=== PATIENT | female | born 1990 | race Caucasian/White ===

== ENCOUNTER 2018-01-08 19:37 | Emergency (ER) | payer BC ==
[2018-01-08 20:02] VITALS: BP 127/76
--- NOTE | 2018-01-08 20:18 | ED ---
Skin Complaint - HPI Summary HPI Summary: 27 y/o female presents to the urgent care c/o a rash w/ some blistering on her upper left chest above the left breast. Pt states Hx of shingles. Pt states mild burning pain w/ mild itchiness. Pain is 2/10. Pt denies fever, but felt warm last night. Pt denies SOB, chest pain, abdominal pain, N/v/D. She has not taking anything to alleviate symptoms. - History of Current Complaint Chief Complaint: UCSkin Time Seen by Provider: 01/08/18 20:17 Stated Complaint: SKIN COMPLAINT/RASH Hx Obtained From: Patient Hx Last Menstrual Period: 12/28/17 Onset/Duration: Started Days Ago - 2 days, Still Present Skin Exposure Onset/Duration: Days Ago - 2 days Timing: Constant Onset Severity: Mild Current Severity: Mild Pain Intensity: 2 Pain Scale Used: 0-10 Numeric Skin Location: Discrete - left upper chest Character: Swelling, Redness, Painful Aggravating Symptom(s): Touch Alleviating Symptom(s): Nothing Associated Signs & Symptoms: Chills, Rash - left upper chest, Tenderness Related History: Other: - HX of shingles - Allergy/Home Medications Allergies/Adverse Reactions: Allergies Allergy/AdvReac Type Severity Reaction Status Date / Time No Known Allergies Allergy Verified 01/08/18 20:02 PMH/Surg Hx/FS Hx/Imm Hx Previously Healthy: Yes - Surgical History Surgery Procedure, Year, and Place: LACRIMAL DUCT PROBING X2 A CHILD Infectious Disease History: Yes Infectious Disease History: Reports: Hx Shingles - REPEATED Denies: Traveled Outside the [place] in Last 30 Days - Family History Known Family History: Positive: None - Pt denies FMHX - Social History Occupation: Employed Full-time Lives: With Family Alcohol Use: Occasionally Substance Use Type: Reports: None Smoking Status (MU): Never Smoked Tobacco Review of Systems Positive: Chills Eyes: Negative ENT: Negative Cardiovascular: Negative Respiratory: Negative Gastrointestinal: Negative Genitourinary: Negative Musculoskeletal: Negative Positive: Rash - left upper chest w/ discrete red rash and mild painful blisters Neurological: Negative Psychological: Normal All Other Systems Reviewed And Are Negative: Yes Physical Exam - Summary Physical Exam Summary: Vital Signs Reviewed: Yes General: well developed, well nourished female sitting in the examining table w/ o any apparent distress. Eyes: Positive: Conjunctiva Clear - PERRLA, EOMI ENT: Positive: Normal ENT inspection, Hearing grossly normal, Pharynx normal, TMs normal Neck: Positive: Supple, Nontender, No Lymphadenopathy Respiratory: Positive: Chest nontender, Lungs clear, Normal breath sounds Cardiovascular: Positive: RRR, No Murmur, Pulses Normal Abdomen Description: Positive: Nontender, No Organomegaly, Soft. Negative: CVA Tenderness (R), CVA Tenderness (L) Bowel Sounds: Positive: Present Musculoskeletal: Positive: Strength Intact, ROM Intact, No Edema Neurological Exam: Normal Psychological Exam: Normal Skin: Positive: rashes - mild erythematous maculopapular eruption, some papule with clear vesicles. located in the left upper chest in a dermatomal distribution, mild tenderness to palpation, no swelling observed. Triage Information Reviewed: Yes Vital Signs On Initial Exam: Initial Vitals Temp Pulse Resp BP Pulse Ox 97.3 F 63 16 127/76 100 01/08/18 19:58 01/08/18 19:58 01/08/18 19:58 01/08/18 19:58 01/08/18 19:58 Diagnostics - Vital Signs Vital Signs Temp Pulse Resp BP Pulse Ox 01/08/18 19:58 97.3 F 63 16 127/76 100 - Laboratory Lab Statement: Any lab studies that have been ordered have been reviewed, and results considered in the medical decision making process. Course/Dx - Course Course Of Treatment: 27 y/o female presents to the urgent care c/o a rash w/ some blistering on her upper left chest above the left breast. Pt states Hx of shingles. Pt states mild burning pain w/ mild itchiness. Pain is 2/10. Pt denies fever, but felt warm last night. Pt denies SOB, chest pain, abdominal pain, N/v/D. She has not taking anything to alleviate symptoms. Hx obtained. Pt with Herpes Zoster on the left upper chest on examination. Pt Rx valtrex and Ibuprofen PO to alleviate symptoms. Pt advised if not improvement or worsening of symptoms to return to the clinic or f/u with PCP in 3 days for further treatment.PT understood and agreed with D/C instructions - Differential Diagnoses - Skin Complaint Differential Diagnoses: Abscess, Cellulitis, Contact Dermatitis, Impetigo, Local Allergic Reaction, MRSA, Tinea, Varicella Zoster - Diagnoses Provider Diagnoses: Shingles Discharge - Sign-Out/Discharge Documenting (check all that apply): Patient Departure - D/C home All imaging exams completed and their final reports reviewed: No Studies - Discharge Plan Condition: Stable Disposition: HOME Prescriptions: Ibuprofen TAB* [Motrin TAB* 600 MG] 600 mg PO Q6H PRN #30 tab PRN Reason: Pain ValACYclovir (*) [Valtrex 1 GM(*)] 1 gm PO BID #14 tab Patient Education Materials: Shingles (ED) Referrals: [facility] [Outside] Additional Instructions: 1-Please take Valtrex PO as directed to alleviate shingles. 2-Take ibuprofen PO q6-8hrs after meals for pain. 3-If symptoms do not improve or worsen please f/u with your PCP or return to the urgent care for further evaluation and treatment. - Billing Disposition and Condition Condition: STABLE Disposition: Home
== END 2018-01-08 20:44 | disposition home or self-care (01) ==
LOC: UCCORT 19:37
DX: B02.9 Zoster without complications (principal)
CPT/HCPCS: 99202; G0463

== ENCOUNTER 2018-04-20 15:53 | Emergency (ER) | payer BC ==
[2018-04-20 16:02] VITALS: BP 119/89
--- NOTE | 2018-04-20 16:13 | UC ---
UC General HPI - HPI Summary HPI Summary: pt c/o a rash on the front of her L ankle for 7 days. it began as a cluster of blisters then became one spot and top came off after soaking in Epson salt. similar rash in past near same area and on chest once. both tx with antiviral medications and improved but those were tx much earlier. pt states given dx of shingles in past. no fever or illness. self txing with neosporin. no hx MRSA. - History of Current Complaint Chief Complaint: UCRash Stated Complaint: STATES SHINGLES Time Seen by Provider: 04/20/18 16:01 Hx Obtained From: Patient Hx Last Menstrual Period: 04/01/18 Onset/Duration: Gradual Onset Timing: Constant Pain Intensity: 0 Associated Signs & Symptoms: Negative: Fever - Allergy/Home Medications Allergies/Adverse Reactions: Allergies Allergy/AdvReac Type Severity Reaction Status Date / Time No Known Allergies Allergy Verified 04/20/18 16:02 PMH/Surg Hx/FS Hx/Imm Hx Previously Healthy: Yes - Surgical History Surgical History: Yes Surgery Procedure, Year, and Place: LACRIMAL DUCT PROBING X2 A CHILD - Family History Known Family History: Positive: None - Pt denies FMHX - Social History Alcohol Use: Occasionally Substance Use Type: None Smoking Status (MU): Never Smoked Tobacco Review of Systems All Other Systems Reviewed And Are Negative: Yes Constitutional: Positive: Negative Eyes: Positive: Negative ENT: Positive: Negative Respiratory: Positive: Negative Cardiovascular: Positive: Negative Gastrointestinal: Positive: Negative Genitourinary: Positive: Negative Motor: Positive: Negative Neurovascular: Positive: Negative Musculoskeletal: Positive: Negative Neurological: Positive: Negative Psychological: Positive: Negative Physical Exam Triage Information Reviewed: Yes Appearance: Well-Appearing Vital Signs: Initial Vital Signs Temp 97.6 F 04/20/18 15:59 Pulse 73 04/20/18 15:59 Resp 15 04/20/18 15:59 BP 119/89 04/20/18 15:59 Pulse Ox 100 04/20/18 15:59 Vital Signs Reviewed: Yes Eyes: Positive: Conjunctiva Clear ENT: Positive: Normal ENT inspection Neck: Positive: Supple Respiratory: Positive: Lungs clear, Normal breath sounds Cardiovascular: Positive: RRR, No Murmur Abdomen Description: Positive: Nontender, No Organomegaly, Soft Bowel Sounds: Positive: Present Musculoskeletal: Positive: ROM Intact Neurological: Positive: Alert Psychological: Positive: Age Appropriate Behavior Skin Exam: Normal Skin: Positive: Rashes - 2cm area on left anterior ankle where the skin appears to be peeling from a ruptured blister. Base is pink. Not hot or tender. No streaking. No other rash. Course/Dx - Differential Dx - Multi-Symptom Differential Diagnoses: Other - viral vs bacterial rash. out of for antiviral tx. no concern for contact dermatitis. doubt shingle, not typical. since rash is recurrent, will culture for viral and bacterial infections. - Diagnoses Provider Diagnosis: Rash Discharge - Sign-Out/Discharge Documenting (check all that apply): Patient Departure All imaging exams completed and their final reports reviewed: No Studies - Discharge Plan Condition: Stable Disposition: HOME Prescriptions: Mupirocin 2% OINT* [Bactroban 2 % Oint*] 1 applic TOPICAL BID 7 Days #1 tube Patient Education Materials: Acute Rash (ED) Referrals: Tiffanie Mcclellan [Medical Doctor] - As Soon As Possible - Billing Disposition and Condition Condition: STABLE Disposition: Home
== END 2018-04-20 16:24 | disposition home or self-care (01) ==
LOC: UCCORT 15:53
DX: R21 Rash and other nonspecific skin eruption (principal)
CPT/HCPCS: 87070; 87205; 87252; 87640; 87641; 99212; G0463

== ENCOUNTER 2018-10-04 07:41 | Emergency (ER) | payer BC ==
[2018-10-04 07:58] VITALS: BP 117/80
--- NOTE | 2018-10-04 08:27 | UC ---
Skin Complaint HPI - HPI Summary HPI Summary: Pt presents wiht gradual onset of "itchy patch of skin" left anterior upper chest. Pt is a [employer] and wears a vest and states the vest will rub against her skin. The pt also states that she has been diagnosed with shingles previously and thinks she is having an other outbreak. - History of Current Complaint Chief Complaint: UCSkin Time Seen by Provider: 10/04/18 08:09 Stated Complaint: SKIN COMPLAINT Hx Obtained From: Patient Hx Last Menstrual Period: 09/16/18 ?: No Onset/Duration: Gradual Onset, Lasting Days, Still Present Skin Exposure Onset/Duration: Days Ago Timing: Constant Onset Severity: Mild Current Severity: Mild Pain Intensity: 6 Pain Scale Used: IPS (Peds Only) Location: Other - left anterior upper chest Character: Pruritus Aggravating Factor(s): Touch Alleviating Factor(s): Other - antivirals Associated Signs & Symptoms: Positive: Negative - Allergy/Home Medications Allergies/Adverse Reactions: Allergies Allergy/AdvReac Type Severity Reaction Status Date / Time No Known Allergies Allergy Verified 10/04/18 07:58 PMH/Surg Hx/FS Hx/Imm Hx Previously Healthy: Yes - Surgical History Surgical History: Yes Surgery Procedure, Year, and Place: LACRIMAL DUCT PROBING X2 A CHILD - Family History Known Family History: Positive: None - Pt denies FMHX - Social History Occupation: Employed Full-time Lives: With Family Alcohol Use: Weekly Substance Use Type: None Smoking Status (MU): Never Smoked Tobacco Have You Smoked in the Last Year: No - Immunization History Vaccination Up to Date: Yes Review of Systems All Other Systems Reviewed And Are Negative: Yes Constitutional: Positive: Negative Skin: Positive: Rash - left upper anterior chest ENT: Positive: Negative Respiratory: Positive: Negative Cardiovascular: Positive: Negative Gastrointestinal: Positive: Negative Genitourinary: Positive: Negative Motor: Positive: Negative Neurovascular: Positive: Negative Musculoskeletal: Positive: Negative Neurological: Positive: Negative Psychological: Positive: Negative Is Patient Immunocompromised?: No Physical Exam - Summary Physical Exam Summary: Pt states that she had a culture done of a similar rash on her left anterior ankle and was told she has shingles. 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 I discussed this with the traffic control technician and she confirmed that the patient was not positive for shingles but for HSV II. I discussed this finding wiht the pt and she verbally confirmed understanding. Triage Information Reviewed: Yes Appearance: Well-Appearing Vital Signs: Initial Vital Signs Temp 98.3 F 10/04/18 07:53 Pulse 86 10/04/18 07:53 Resp 16 10/04/18 07:53 BP 117/80 10/04/18 07:53 Pulse Ox 100 10/04/18 07:53 Vital Signs Reviewed: Yes Eye Exam: Normal ENT Exam: Normal ENT: Positive: Hearing grossly normal Dental Exam: Normal Neck exam: Normal Respiratory: Positive: No respiratory distress Musculoskeletal Exam: Normal Neurological Exam: Normal Psychological Exam: Normal Skin: Positive: Rashes - small oblong area, mildly erythemtous with 4-5 tiny, clear fluid filled vessicles. Pt denies pain only reports pruritus. Course/Dx - Differential Diagnoses - Skin Complaint Differential Diagnoses: Varicella Zoster - Diagnoses Provider Diagnosis: Herpes dermatitis Discharge - Sign-Out/Discharge Documenting (check all that apply): Patient Departure All imaging exams completed and their final reports reviewed: No Studies - Discharge Plan Condition: Stable Disposition: HOME Prescriptions: ValACYclovir (*) [Valtrex 1 GM(*)] 1 gm PO Q12H #14 tab Patient Education Materials: Itchy Skin (ED), Dermatitis (ED) Referrals: [facility] [Outside] No Primary Care Phys,NOPCP [Primary Care Provider] - - Billing Disposition and Condition Condition: STABLE Disposition: Home
== END 2018-10-04 08:48 | disposition home or self-care (01) ==
LOC: UCCORT 07:41
DX: B00.1 Herpesviral vesicular dermatitis (principal)
CPT/HCPCS: 99212; G0463